=== PATIENT | male | born 1990 | race African-American/Black ===

== ENCOUNTER 2017-07-13 13:47 | Emergency (ER) | payer OTHER ==
[~2017-07-13] VITALS: Ht 180.3 cm; Wt 136.7 kg
[2017-07-13 13:53] VITALS: BP 141/60
--- NOTE | 2017-07-13 14:05 | NUR ---
PATIENT TO ER BED 2
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
--- NOTE | 2017-07-13 14:15 | NUR ---
PT TAKEN OFF THE UNIT FOR CT/XRAY VIA WHEEL CHAIR BY WHAT JOB TITLES MEAN
[2017-07-13] MEDS ORDERED: IBUPROFEN 800 MG TAB PO ONE (14:50)
[2017-07-13 15:45] VITALS: BP 141/60
== END 2017-07-13 15:45 | disposition home or self-care (01) ==
LOC: MED 13:47
DX: F07.81 Postconcussional syndrome (principal); S63.502A Unspecified sprain of left wrist, initial encounter; S93.402A Sprain of unspecified ligament of left ankle, initial encounter; S09.90XA Unspecified injury of head, initial encounter; V49.40XA Driver injured in collision with unspecified motor vehicles in traffic accident, initial encounter; Y93.89 Activity, other specified; Y92.89 Other specified places as the place of occurrence of the external cause; Y99.8 Other external cause status
CPT/HCPCS: 70450; 73110; 73610; 99284

== ENCOUNTER 2017-08-13 11:01 | Emergency (ER) | payer OTHER ==
[~2017-08-13] VITALS: Ht 182.9 cm; Wt 135.6 kg
[2017-08-13 11:04] VITALS: BP 139/99
--- NOTE | 2017-08-13 11:08 | NUR ---
PT AMBULATED TO [facility]
--- NOTE | 2017-08-13 11:11 | NUR ---
RIGHT EAR PAIN X2 DAYS WITH DECREASED HEARING, IN NAD. RESP EVEN AND UNLABORED. DENIES ANY FEVERS/CHILLS, HX DENIES
--- NOTE | 2017-08-13 11:23 | NUR ---
Patient discharged with v/s stable. Written and verbal after care instructions given and explained. Patient alert, oriented and verbalized understanding of instructions. Ambulatory with steady gait. All questions addressed prior to discharge. ID band removed. Patient advised to follow up with PMD. Rx of CORTISPORIN, KEFLEX given. Patient educated on indication of medication including possible reaction and side effects. Opportunity to ask questions provided and answered.
== END 2017-08-13 11:23 | disposition home or self-care (01) ==
LOC: MED 11:01
DX: H60.91 Unspecified otitis externa, right ear (principal); H66.91 Otitis media, unspecified, right ear
CPT/HCPCS: 99283

== ENCOUNTER 2017-10-03 10:22 | Emergency (ER) | payer OTHER ==
[~2017-10-03] VITALS: Ht 180.3 cm; Wt 131.5 kg
[2017-10-03 10:24] VITALS: BP 147/81
--- NOTE | 2017-10-03 11:08 | NUR ---
PATIENT PRESENTS TO ED WITH intermittent rectal bleeding . PT STATES . DENIES N/V/D; SKIN IS PINK/WARM/DRY; AAOX4 WITH EVEN AND STEADY GAIT; LUNGS CLEAR BL; HR EVEN AND REGULAR; PT DENIES ANY FEVER, CP, SOB, OR COUGH AT THIS TIME; PATIENT STATES PAIN OF 0/10 AT THIS TIME; VSS; PATIENT POSITIONED FOR COMFORT; HOB ELEVATED; BEDRAILS UP X2; BED DOWN. ER MD MADE AWARE OF PT STATUS.
[2017-10-03 11:17] VITALS: BP 147/81
--- NOTE | 2017-10-03 11:18 | NUR ---
Patient discharged with v/s stable. Written and verbal after care instructions given and explained. Patient alert, oriented and verbalized understanding of instructions. Ambulatory with steady gait. All questions addressed prior to discharge. ID band removed. Patient advised to follow up with PMD. Rx of colace given. Patient educated on indication of medication including possible reaction and side effects. Opportunity to ask questions provided and answered.
== END 2017-10-03 11:18 | disposition home or self-care (01) ==
LOC: MED 10:22
DX: K64.4 Residual hemorrhoidal skin tags (principal)
CPT/HCPCS: 81002; 99282

== ENCOUNTER 2018-10-13 10:21 | Emergency (ER) | payer SELFPAY ==
[~2018-10-13] VITALS: Ht 180.3 cm; Wt 127.0 kg
[2018-10-13 10:50] VITALS: BP 123/73
[2018-10-13 10:51] VITALS: BP 123/73
--- NOTE | 2018-10-13 10:54 | NUR ---
PATIENT AMBULATED TO ER BED 8
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
--- NOTE | 2018-10-13 11:55 | NUR ---
PT AMB TO RESTROOM
--- NOTE | 2018-10-13 12:15 | NUR ---
PATIENT ELOPED FROM FACILITY. DISCHARGE INSTRUCTIONS NOT GIVEN TO PATIENT. DR. GARNICA NOTIFIED.
== END 2018-10-13 12:15 | disposition left against medical advice (07) ==
LOC: MED 10:21
DX: R20.2 Paresthesia of skin (principal); I10 Essential (primary) hypertension
CPT/HCPCS: 99281